=== PATIENT | female | born 1935 | race Two or more races ===

== ENCOUNTER 2025-03-07 09:19 | Outpatient (CLI) | payer OTHER ==
[~2025-03-07 09:19] MED LIST: AMBIEN PAK5 MG; ASA81 MG; COZAAR100 MG; GABAPENTIN100 MG; METFORMIN HCL500 MG; OMEPRAZOLE20 MG; TOPROL XL100 MG; ZOCOR40 MG
== END 2025-03-07 09:20 | disposition home or self-care (01) ==
LOC: NUCLEAR 09:19
PROVIDERS: ATTEND Psychiatry & Neurology Clinical Neurophysiology
DX: G31.84 Mild cognitive impairment of uncertain or unknown etiology (principal)
CPT/HCPCS: 78803; A9557